=== PATIENT | male | born 1980 ===

== ENCOUNTER 2024-03-25 18:18 | Outpatient (REF) | payer BC, SELFPAY ==
--- OUTSIDE RECORDS SUMMARY | 2024-03-25 18:34 | XMS_ITS | Data Portability ---
Author Organization [facility], [facility] Address [address] [place] [address] Assessment Encounter Date Assessment Date Assessment LastModified by Organization Details LastModified Time 08/13/2023 08/13/2023 Generally healthy 43 y/o M. The total time devoted to today's encounter, including both the [id number]-[id number] time with the patient and/or family/caregi yahir and okq-nuft-ju-f sedrick time I personally spent is 105 minutes. Not available 08/13/2023 18:02:28 Plan of Treatment Reminders Order Date Submit Date Provider Last Modified By Organization Details Last Modified Time Details Appointments Acute 10 2023 01:55P M Not available Not available Not available Lab RPR (rapid plasma reagin), serum 2023 024 [email or web address] [address] [place] [address] [place], [address], 02/11/2024 08:49:34 HIV (1+2) Ab screen, serum [address] [facility] (Registration ), [address] [place] [address] [place], [address], 02/11/2024 08:49:56 hepatitis C virus Ab, serum [address] [facility] (Registration ), [address] [place] [address] [place], [address], 02/11/2024 08:50:21 lipid panel, serum 2023 024 [email or web address] (Registration ), [address] [place] [address] [place], [address], 02/11/2024 08:50:40 CMP, serum or plasma 2023 024 [facility] [address] [place] [address] [place], [address], 02/11/2024 08:50:47 culture, wound - right breast 2023 024 [facility] ([facility] ), [address] [place] [address] [place], [address], 03/25/2024 15:05:28 Referral None recorded. Procedures None recorded. Surgeries None recorded. Imaging None recorded. Medication Orders Bactrim DS 800 mg-160 mg tablet [facility]24 [id number], [address], [place], [id number], 03/25/2024 14:47:47 Bactrim DS 800 mg-160 mg tablet [email or web address] [place] [address] [facility] #[facility], [address], [place], [phone], 03/25/2024 15:00:36 Patient TargetsNo targets recorded. Patient Instructions Encounter Date Encounter Id Patient Instructions Last Modified By Organization Details Last Modified Time 08/13/2023 [id number] It was nice to meet you, Stefan! Continue the excellent work you are doing. I think the thigh numbness might be meralgia paresthetica - a pinched lateral femoral cutaneous nerve. Nothing to worry about, but perhaps work on the pelvic tension. I will see you back in 6 months or so, with fasting labs ahead of time. Call in the meantime with any questions or concerns. Take care! Not available 08/13/2023 14:24:19 03/25/2024 [id number] 1. Wound culture was obtained and sent for testing will take 2 days to result. We will communicate these to you when they return. 2. In the meantime you were given your first dose of antibiotic while here. You are going to take Bactrim twice a day for the next 7 days. [email or web address] Not available 03/25/2024 14:48:04 Reason for Referral None Reported. Problems Name Problem SNOMED Code Status Onset Date Resolution Date Notes Provider Name and Address Organization Details Recorded Time History of syphilis 234085587599 9108 Completed 202308/13/[address], [place], [address], [facility] 17:59:20 Intermitt ent palpitati ons 869182860 Active [address], [place], [address], [facility] 17:47:00 Difficult y sleeping 751488444 Active [address], [place], [address], [facility] 17:47:00 Meralgia paresthet ica of left leg 456544762027 106 Active [address], [place], [address], [facility] 17:47:00 High risk sexual behavior 054017129 Active [address], [place], [address], [facility] 17:59:13 History of syphilis 684715018678 9108 Active [address], [place], [address], [facility] 4 17:59:20 History of intraveno us drug abuse 575553595841 86947 Active 2023 CELIO MARTINI MD [address], [place], [address], [facility] 17:59:17 Adult health examinati on Active 2023 CELIO MARTINI MD [address], [place], [address], [facility] 17:59:11 [facility] 011984767 Active 2023 YOVANY WALSH PA-C [address], [place], [address] , [facility] 14:43:55 Problem Notes None recorded. Procedures Surgical History Date Name Laterality Status Provider Name and Address Organization Details Recorded Time 04/21/20 05 lumbar microdiscectomy completed RUFUS SANCHES RN [facility], [facility] 08/13/2023 13:02:32 Imaging Results None recorded. Procedure Notes None recorded. Medical Equipment None Reported. Allergies No known drug allergies Medications Name Sig Start Date Stop Date Status Note LastModified by Organization Details LastModified Time valacyclovir 1 gram tablet TAKE 1 TABLET BY MOUTH TWICE A DAY FOR 10 DAYS 08/13 completed Not Available Not Available Not Available lorazepam 0.5 mg tablet TAKE 1 TABLET BY MOUTH EVERY DAY AT BEDTIME NEEDED 08/13 completed Not Available Not Available Not Available cephalexin 500 mg capsule TAKE 1 CAPSULE BY MOUTH FOUR TIMES A DAY 08/13 completed Not Available Not Available Not Available Bactrim DS 800 mg-160 mg tablet Take 2 tablets by oral route. 2023 active Not Available Not Available Not Avai lable Vitals Date Recorded Body height Body mass index (BMI) Body weight Body temperature Oxygen saturation Oxygen saturation in Arterial blood by Pulse oximetry Heart rate Systolic blood pressure Diastolic blood pressure Provider Name and Address Organization Details Last Updated DateTime 177.17 cm 26.7 kg/m2 36962.5 9 g 97.5 [degF] 98 % 98 % 67 /min 130 mm[Hg] 78 mm[Hg] RUFUS SANCHES RN [facility] 13:05:34 Date Recorded Body height Body mass index (BMI) Body weight Body temperature Oxygen saturation Oxygen saturation in Arterial blood by Pulse oximetry Heart rate Respiratory rate Systolic blood pressure Diastolic blood pressure Provider Name and Address Organization Details Last Updated DateTime 4 177.17 cm 26 kg/m2 05026.6 3 g 97.6 [degF] 98 % 98 % 65 /min 18 /min 141 mm[Hg] 92 mm[Hg] Sandra Stroud RN [facility] 4 14:13:55 Social History Question Answer Notes LastModified by Organizat ion Details LastModified Time Tobacco Smoking Status Never Smoker RUFUS SANCHES RN null, [facility] 08/13/2023 13:01:31 Would You Say That, In General, Your Health Is Good [email or web address] Information not available 08/13/2023 How Often Does Anyone, Including Family, Insult Or Talk Down To You? Never [email or web address] Information no t available 08/13/2023 How Often Does Anyone, Including Family, Threaten You With Harm? Never [email or web address] Information not available 08/13/2023 How Often Does Anyone, Including Family, Scream Or Curse At You? Never [email or web address] Information not available 08/13/2023 Within The Past 12 Months, You Worried That Your Food Would Run Out Before You Got Money To Buy More. Never True [email or web address] Information n ot available 08/13/2023 Within The Past 12 Months, The Food You Bought Just Didn't Last And You Didn't Have Money To Get More. Never True [email or web address] Information not available 08/13/2023 How Hard Is It For You To Pay For The Very Basics Like Food, Housing, Medical Care, And Heating? Would You Say It Is: Not Hard At All [email or web address] Information not available 08/13/2023 In The Past 12 Months, Has Lack Of Reliable Transportation Kept You From Medical Appointments, Meetings, Work Or From Getting Things Needed For Daily Living? No [email or web address] Information not available 08/13/2023 What Is Your Housing Situation Today? I Have Housing. [email or web address] Information not available 08/13/2023 How Often In The Past Year Have You Used Marijuana (including Smoking, Vaping, Dabbing, Or Edibles)? Monthly Or Less [email or web address] Information not available 08/13/2023 How Often In The Past Year Have You Used Prescription Medications That Were Not Prescribed To You? Never [email or web address] Information not available 08/13/2023 How Often In The Past Year Have You Taken Your Own Prescription Medication More Than The Way It Was Prescribed Or For Different Reasons Than Its Intended Purpose? Never [email or web address] Information not available 08/13/2023 How Often In The Past Year Have You Used Other Drugs (for Example, Heroin, Cocaine, Meth, Salvia, Inhalants)? Monthly Or Less [email or web address] Information not available 08/13/2023 Date Of Most Recent SBINS 08/13/2023 [email or web address] Information not available 08/13/2023 What Was The Date Of Your Most Recent Tobacco Screening? 03/25/2024 Information n ot available 03/25/2024 Has Tobacco Cessation Counseling Been Provided? Yes Information not available 03/25/2024 On What Date Was Tobacco Cessation Counseling Provided? 03/25/2024 Information not available 03/25/2024 Do You Or Have You Ever Used Any Other Forms Of Tobacco Or Nicotine? No Information not available 08/13/2023 Sex: Unknown Functional Status None recorded. Mental Status None recorded. Family History Relationship Description Onset Age of this Age Resolved Age Notes Father Heart disease heart failure; cardiorenal syndrome Mother Alcohol abuse as wel l as other family members (multiple paternal uncles) Medical History No medical history recorded. Past Encounters Encounter ID Performer Location Encounter Start Date Encounter Closed Date Diagnosis/Indication Diagnosis SNOMED-CT Code Diagnosis ICD10 Code [id number] CELIO MARTINI MD [address] [address] 08/13/2023 12:43:15 08/13/2023 16:54:43 Meralgia paresthetica of left leg 9900486360 93095 G57.12 Difficulty sleeping 3013 61577 Z72.820 Intermitte nt palpitations 661459404 R00.2 History of syphilis 1087 838442 860862 Z86.19 History of intravenous drug abuse 8282332813 8857338 F19.11 High risk sexual behavior 312535800 Z72.52 Adult heal th examination 040571396 Z00.00 Normal grief reaction 27 7223210 F43.20 [id number] YOVANY WALSH PA-C [address] [place] [address] 03/25/2024 13:56:31 03/25/2024 14:51:07 Abscess 755779721 L02.91 Health Concerns Section Related Observation LastModified by Organization Detai ls LastModified Time None Recorded Concern Status LastModified by Organization Details LastModified Time None Recorded Advance Directives Directive None Recorded Payers Encounter Date Sequence Insurance Name Policy Number Policy Caputo Covered Member ID Caputo Member ID Guarantor Name 08/13/2023 1 [place] [facility] [id number] Quan Evans [id number] Quan Evans 03/25/2024 1 [place] [facility] [id number] Quan Evans [id number] Quan Evans Notes Date Note Type Note Provider Name and Address Organization Details Recorded Time 08/13/2023 text/html HPI Notes: CC: N EW PATIENT - SLEEP TROUBLE, PALPITATIONS, DRUG/ALCOHOL USE 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 living in [place] since Aug 2021 November 2022 - lung cancer processing grief. saw grief counselor twice in [facility]; they recommended group therapy for young /ers, but he wasn't living down there anymore spends a week a month in [facility] - still has apt there family in [place] Dad - now on hospice for HF, PD, cardiorenal failure skiier - injury in teens ([employer]), ultimately required back surgery 2004 - micro discectomy L5/S1 fortunately, no residual back pain or limitations. does have area of numbness to L lateral thigh, present for a few years; wonders if r/t back. struggles w/ sleep at times. often wakes up 1-4 AM and has trouble getting back to sleep. however, feels pretty good physically if he can sleep 11-4AM; doesn't feel great mentally. previously taking 0.25 mg lorazepam 2-3 nights/wk to help w/ sleep; got off that when he saw how hard it was for his to come off clonazepam. hasn't taken any in a month and 1/2. has most recently been using lipocalm with GILMA, which does help. Fhx of alcoholism on both sides (multiple paternal uncles; mother is functioning alcoholic. he is cognizant of his drinking, and his sense that he needs a drink every night, has trouble going w/o. usually keeps it to 2 drinks, sometimes 3. drinks more when he's alone. drinking tendencies/craving picked up when his was ill. started having palpitations in the fall 2020, after his Covid vaccine. initially, they were very pronounced - skipped beats, spreading heat. very positional - worse on stomach now heat in navel, a little in chest, blanching in skin, legs. no skipped beats or racing/irregular heart. has had EKGs, stress test, echo, got a [employer] device to check home EKG when having sx - all normal lives alone in [place]. identifies as mahoney. has been sexually active at times, same male partner, in past yr since 's . practices both receptive and insertive anal sex. uses condoms intermittently. worries about assisted effects of PrEP - knows about it, has never taken it. hx of drug use - heavy for a period in his 20s/30s, much less now. in past year has used amphetamines a few times; IV drugs once. Practices yoga daily, 20 mins to two hours. Doesn't currently have an active sitting meditation practice. Active, enjoys skiing, walking. Hobbies include music. CELIO MARTINI MD [address], [place], [address], [facility]. 08/13/2023 18:03:03 03/25/2024 text/html HPI Notes: Jeff benavides is a 43-year-old male who presents with concerns for MRSA infection of the right breast. He states that a few weeks ago he accidentally caused abrasion to this area while shaving. In the last week it has become red, angry with purulence. 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 Since onset of symptoms he has not had fevers. He has not been on any antibiotics recently. He spoke with his primary care office and they recommended he come here for culture medication [address], [place], [address], [facility]. 03/25/2024 15:21:37
--- OUTSIDE RECORDS SUMMARY | 2024-03-25 18:34 | XMS_ITS ---
Author Organization Unknown Address [address] [place] [phone] Phone Care Team Providers Care Biomass Production Manager Name Role Phone ALEX ACKERMAN Registered Nurse Unavailable MANUEL Patino Attending Unavailable PCP NOT SELECTED Primary Unavailable UNLISTED PROVIDER - REQUESTED Xhandoff Un available Social History Type Status Start Date End Date Code Code Syst em Sex Male Vital Signs Vital Sign Value Unit Lyman Value Lyman Unit Date/Time Recent/Initial? Code Code System Body Mass Index 36.25 kg/m2 03/08/2022 13:13 Initial 14887 -5 [facility] Systolic Blood Pressure 153 mm[Hg] 03/08/2022 13:13 Initial 8480- 6 [facility] Diastolic Blood Pressure 89 mm[Hg] 03/08/2022 13:13 Initial 8462- 4 [facility] Body Surface Area 1.89 m2 03/08/2022 13:13 Initial 3140- 1 [facility] Height 152.400 0 cm 60.00 in 03/08/2022 13:13 Initial 8302- 2 [facility] O2 Saturation 99 % 2021 13:13 Initial 57479 -5 [facility] Pulse 75.0 /min 03/08/2022 13:13 Initial 8867- 4 [facility] Respiration 18 /min 03/08/20 13:13 Initial 9279- 1 [facility] Temperature 36.2 Leann 97.2 F 03/08/20 13:13 Initial 8310- 5 [facility] Weight 84.20 kg 185.63 lbs 03/08/2022 13:13 Initial 67366 -7 [facility] Medications Medication Start Date End Date Route Frequency Dose Code Code System Medication Instructions Home Meds Keflex 500MG Oral Capsule 03/08/2022 Unknown ORAL THREE TIMES A DAY 1 CAPSULE 766079 RxNorm TAKE 1 CAPSULE ORAL THREE TIMES A DAY Bactrim DS 800MG-160MG Oral Tablet 03/08/2022 Unknown ORAL TWICE A DAY 1 TABLET 328699 RxNorm TAKE 1 TABLET ORAL TWICE A DAY Hospital Discharge Instructions Should you have any questions prior to discharge, please contact a member of your healthcare team. If you have left the hospital and have any questions, please contact your primary care physician. Reason For Referral No Data Found Allergies and Adverse Reactions Allergy Substance Reaction Severity Start Date Concern Status Co de Code System No Known Drug Allergies Active 599418742 SNOMED-CT Plan of Treatment No Data Found Encounters Encounter Diagnosis Start Date Code Code Sys tem Cutaneous abscess of right hand 03/08/2022 SNOMED-CT Personal Care Team Section Performer Name Performer Role Active Date Inactive Da te
--- OUTSIDE RECORDS SUMMARY | 2024-03-25 18:34 | XMS_ITS | Continuity of Care Document ---
Author Organization [place] - [facility]a [facility], [facility] Address [address] [place] [address] Assessment No assessment recorded. Plan of Treatment Reminders Order Date Submit Date Provider Last Modified By Organization Details Last Modified Time Details Appointments Acute 10 2023 01:55P M Not available Not available Not available Lab culture, wound - right breast 2023 [facility] (Registration ), [address] [place] [address] [place], [address], 03/25/2024 15:05:28 Referral None recorded . Procedures None recorded . Surgeries None recorded . Imaging None recorded . Medication Orders Bactrim DS 800 mg-160 mg tablet 2023 024 [id number], [address] [place], [id number], 03/25/2024 14:47:47 Bactrim DS 800 mg-160 mg tablet [email or web address] [place] [address] [id number], [address] [place], [place], [id number], 03/25/2024 15:00:36 Patient TargetsNo targets recorded. Patient Instructions Encounter Date Encounter Id Patient Instructions Last Modified By Organization Details Last Modified Time 03/25/2024 [id number] 1. Wound culture was obtained and sent [...] Organization Details Recorded Time History of syphilis [id number] 9108 Completed 202308/13/[address], [place], [address], [facility] 17:59:20 Intermitt ent palpitati ons 095249445 Active [address], [facility] [address], [facility] 17:47:00 Difficult y sleeping 903823881 Active [address], [place], [address], [facility] 17:47:00 Meralgia paresthet ica of left leg 213331544241 106 Active [address], [place], [address], [facility] 17:47:00 High risk sexual behavior 967068728 Active [address], [place], [address], [facility] 17:59:13 History of syphilis 154197530574 9108 Active [address], [place], [address], [facility] 17:59:20 History of intraveno us drug abuse 806953770169 11130 Active [address], [facility] [address], [facility], [facility] 4 17:59:17 Adult health examinati on Active 2023 CELIO MARTINI MD [address], [place], [address], [facility] 4 17:59:11 Abscess 248075743 Active 2023 YOVANY WALSH PA-C [address], [place], [address], [facility] 4 14:43:55 Problem Notes None recorded. Procedures Surgical History Date Name Laterality Status Provider Name and Address Organization Details Recorded Time 04/21/20 05 lumbar microdiscectomy completed RUFUS SANCHES RN [facility], [facility] 08/13/2023 13:02:32 Imaging Results None recorded. [...] Updated DateTime 4 177.17 cm 26 kg/m2 48210.6 3 g 97.6 [degF] 98 % 98 % 65 /min 18 /min 141 mm[Hg] 92 mm[Hg] Sandra Stroud RN [facility] 14:13:55 Social History Question Answer Notes LastModified by Organizat ion Details LastModified Time Tobacco Smoking Status Never Smoker RUFUS SANCHES RN [facility], [facility] 08/13/2023 13:01:31 Would You Say That, In General, Your Health Is Good [email or web address] Information not available 08/13/2023 How Often Does Anyone, Including Family, Insult Or Talk Down To You? Never [email or web address] Information no t available 08/13/2023 How Often Does Anyone, Including Family, Threaten You With Harm? Never [email or web address] Information not available 08/13/2023 How Often Does Anyone, Including Family, Scream Or Curse At You? Never [email or web address] Information not available 08/13/2023 Within The Past 12 Months, You Worried That Your Food Would Run Out Before You Got Money To Buy More. Never True [email or web address] Information n ot available 08/13/2023 Within The Past 12 Months, The Food You Bought Just Didn't Last And You Didn't Have Money To Get More. Never True [email or web address] Information not available 08/13/2023 How Hard Is It For You To Pay For The Very Basics Like Food, Housing, Medical Care, And Heating? Would You Say It Is: Not Hard At All [email or web address] Information not available 08/13/2023 In The Past 12 Months, Has Lack Of Reliable Transportation Kept You From Medical Appointments, Meetings, Work Or From Getting Things Needed For Daily Living? No [email or web address] Information not available 08/13/2023 What Is Your Housing Situation Today? I Have Housing. [email or web address] Information not available 08/13/2023 How Often In The Past Year Have You Used Marijuana (including Smoking, Vaping, Dabbing, Or Edibles)? Monthly Or Less [email or web address] Information not available 08/13/2023 How Often In The Past Year Have You Used Prescription Medications That Were Not Prescribed To You? Never [email or web address] Information not available 08/13/2023 How Often In The Past Year Have You Taken Your Own Prescription Medication More Than The Way It Was Prescribed Or For Different Reasons Than Its Intended Purpose? Never [email or web address] Information not available 08/13/2023 How Often In The Past Year Have You Used Other Drugs (for Example, Heroin, Cocaine, Meth, Salvia, Inhalants)? Monthly Or Less [email or web address] Information not available 08/13/2023 Date Of Most Recent SBINS 08/13/2023 [email or web address] Information not available 08/13/2023 What Was The Date Of Your Most Recent Tobacco Screening? 03/25/2024 Information n ot available 03/25/2024 Has Tobacco Cessation Counseling Been Provided? Yes Information not available 03/25/2024 On What Date Was Tobacco Cessation Counseling Provided? 03/25/2024 Information not available 03/25/2024 Do You Or Have You Ever Used Any Other Forms Of Tobacco Or Nicotine? No [email or web address] Information not available 08/13/2023 Sex: Unknown Functional [...] Diagnosis/Indication Diagnosis SNOMED-CT Code Diagnosis ICD10 Code [id number] YOVANY WALSH PA-C [address] [place] [address] 03/25/2024 13:56:31 03/25/2024 14:51:07 Abscess [id number] L02.91 Health Concerns Section Related Observation LastModified by Organization Detai ls LastModified Time None Recorded Concern Status LastModified by Organization Details LastModified Time None Recorded Payers Encounter Date Sequence Insurance Name Policy Number Policy Caputo Covered Member ID Caputo Member ID Guarantor Name 03/25/2024 1 [place] [facility] [id number] Quan Evans [id number] Quna Evans Notes Date Note Type Note Provider Name and Address Organization Details Recorded Time 03/25/2024 text/html HPI Notes: Jeff benavides is [...] here for culture medication [address], [place], [address], [facility]. 03/25/2024 15:21:37
== END 2024-03-25 18:19 | disposition home or self-care (01) ==
LOC: LBN 18:18
PROVIDERS: Visit Provider Physician Assistant Medical
DX: L02.91 Cutaneous abscess, unspecified (principal)
CPT/HCPCS: 87077; 87070; 87186; 87205